=== PATIENT | male | born 1960 | race Caucasian/White ===

== ENCOUNTER 2021-12-26 07:55 | Outpatient (CLI) | payer BC, SELFPAY ==
--- NOTE | ~2021-12-26 | CT_ITS ---
EXAMINATION:CT lung screening DATE: 12/26/2021 08:17 INDICATION: Personal history of nicotine dependence. Current smoker with 40 pack year history. TECHNIQUE: Computed tomography (CT) of the chest was performed without intravenous contrast. Automate d exposure control and iterative reconstruction technique were employed. The dose-length product (DLP ) was 195.62 mGy-cm. COMPARISON: Chest CT 11/01/2019 FINDINGS: The lungs demonstrate mild atelectasis. There is mild scarring in paraspinal right lower lo be. No pleural effusion. The heart size is normal. No pericardial effusion. 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 There is a 6 mm stone in left kidney. There is mild thoracic spondylosis. There is mild chronic anterior wedging of multiple vertebral bodies. IMPRESSION: 1. Lung-RADS category 2: Benign appearance or behavior. Continue annual screening with noncontrast lo w-dose chest CT in 12 months. Reviewed, dictated and finalized at location A. PRESIDENT BUSINESS DEVELOPMENT IMPRESSION: 1. Lung-RADS category 2: Benign appearance or behavior. Continue annual screeni ng with noncontrast low-dose chest CT in 12 months.
== END 2021-12-26 07:56 | disposition home or self-care (01) ==
LOC: CHSIMG 07:59
PROVIDERS: PCP Internal Medicine; Visit Provider Internal Medicine
DX: Z12.2 Encounter for screening for malignant neoplasm of respiratory organs (principal); Z87.891 Personal history of nicotine dependence
CPT/HCPCS: 71271

== ENCOUNTER 2023-06-25 08:24 | Outpatient (CLI) | payer MEDICARE, MEDICAID, SELFPAY ==
--- NOTE | ~2023-06-25 | CT_ITS ---
CT Scan of the Chest without Contrast: Clinical Indication: Lung cancer screening, personal history of nicotine dependence Technique: Contiguous sections were acquired throughout the chest without intravenous contrast. Dose reduction technique was used on this scan by utilizing automated exposure control and iterative recon struction technique. The dose-length product (DLP) was 186.30 mGy-cm. COMPARISON: 12/26/2021 and 11/01/2019 Findings: There is no evidence of any significant mediastinal, hilar or axillary lymphadenopathy. Presumed thym ic hyperplasia in the mediastinum is unchanged. There is no evidence of pleural or pericardial effusion. The lungs are clear. No pulmonary nodules or infiltrates are noted. Images through the upper abdomen reveal nonobstructing left renal stone. Impression: Lung RADS 1: Negative. 12 month follow-up CT advised. Reviewed, dictated and finalized at [facility]. Impression: Lung RADS 1: Negative. 12 month follow-up CT advised.
== END 2023-06-25 08:25 | disposition home or self-care (01) ==
LOC: CHSIMG 08:28
PROVIDERS: PCP Internal Medicine; Visit Provider Internal Medicine
DX: Z12.2 Encounter for screening for malignant neoplasm of respiratory organs (principal); Z87.891 Personal history of nicotine dependence
CPT/HCPCS: 71271

== ENCOUNTER 2024-03-14 10:09 | Outpatient (CLI) | payer MEDICARE, SELFPAY ==
--- NOTE | ~2024-03-14 | XR_ITS ---
AP and lateral views of the left hip Clinical history: Pain Findings: No acute fracture or dislocation is seen. There is mild degenerative change at the superior aspect of the left hip joint. Soft tissues are unremarkable. Impression: Mild left hip joint degenerative change. Reviewed, dictated and finalized at location . Impression: Mild left hip joint degenerative change.
--- NOTE | ~2024-03-14 | XR_ITS ---
XR lumbar spine 2-3V DATE: 03/14/2024 10:45 INDICATION: Horizontal shooting gluteal pain for one month TECHNIQUE: Standing AP, lateral and coned lateral lumbosacral views COMPARISON: None FINDINGS: Approximately 16 degrees dextroscoliosis from T12 to L4. Status post posterior and interbody surgical fusion at L3-4. There is bone fusion at the posterior el ements at L3-L5. Status post lower lumbar laminectomy. There is moderate degenerative disc disease at L1-2, L2-3. There is severe degenerative disc disease at L4-5 and L5-S1. No fracture or bone destruction is evident. The sacroiliac joints are intact. IMPRESSION: Status post lower lumbar laminectomy, posterior and interbody surgical fusion at L3-4, lon ne contusion at the posterior elements at L3-L5. Mild dextroscoliosis Multilevel degenerative disc disease, most severe at L4-5 and L5-S1 Reviewed, dictated and finalized at location B. IMPRESSION: Status post lower lumbar laminectomy, posterior and interbody surgi collin fusion at L3-4, bone contusion at the posterior elements at L3-L5. Mild dextroscoliosis Multilevel degenerative disc disease, most severe at L4-5 and L5-S1
== END 2024-03-14 10:10 | disposition home or self-care (01) ==
LOC: CHSIMG 10:11
PROVIDERS: PCP Internal Medicine; Visit Provider Internal Medicine
DX: M25.552 Pain in left hip (principal); Z98.890 Other specified postprocedural states; M41.86 Other forms of scoliosis, lumbar region; M51.36 Other intervertebral disc degeneration, lumbar region
CPT/HCPCS: 72100; 73502

== ENCOUNTER 2024-04-11 10:18 | Outpatient (CLI) | payer MEDICARE, SELFPAY ==
--- NOTE | ~2024-04-11 | XR_ITS ---
XR cervical spine 4-5V Ordering provider: Denis Fleming MD History: . Cervical spondylosis . Comparison: None. FINDINGS: VERTEBRAL BODIES: Normal height and alignment. No visible fracture or subluxation. The dens is intact . Degenerative changes of the spine with anterior osteophytes. DISK SPACES: Narrowing of the disc C5-C6 and C6-C7. Multilevel uncovertebral joint osteoarthritic elsi nges. Multilevel facet joint disease. Multilevel bilateral narrowing of the foramina. PARASPINOUS SOFT TISSUES: No prevertebral soft tissue swelling. IMPRESSION: No acute osseous abnormality cervical spine. Multilevel degenerative disk disease and facet arthropat hy. Changes of the spine with multilevel degenerative disc disease. Reviewed, dictated and finalized at location A. IMPRESSION: No acute osseous abnormality cervical spine. Multilevel degenerative disk disea se and facet arthropathy. Changes of the spine with multilevel degenerative dis c disease.
== END 2024-04-11 10:19 ==
PROVIDERS: PCP Internal Medicine; Visit Provider Pain Medicine Pain Medicine
DX: M47.812 Spondylosis without myelopathy or radiculopathy, cervical region (principal)
CPT/HCPCS: 72050

== ENCOUNTER 2024-09-14 08:34 | Outpatient (CLI) | payer MEDICARE, SELFPAY ==
--- NOTE | ~2024-09-14 | CT_ITS ---
CT Scan of the Chest without Contrast: Clinical Indication: Lung cancer screening, nicotine dependence Technique: Contiguous sections were acquired throughout the chest without intravenous contrast. Dose reduction technique was used on this scan by utilizing automated exposure control and iterative recon struction technique. The dose-length product (DLP) was 142.83 mGy-cm. COMPARISON: 06/25/2023 Findings: Stable mildly prominent anterior mediastinal lymph nodes and/or residual thymic tissue. There is no evidence of pleural or pericardial effusion. The lungs are clear. No pulmonary nodules or infiltrates are noted. Images through the upper abdomen reveal 3.9 cm exophytic right renal mass, of greater density than si mple cyst. Impression: Lung RADS 1-S: Negative. [address] advised. 3.9 cm suspected exophytic right renal mass. Pre and postcontrast CT or MR recommended, as the lesion appears to be solid, and a renal cell carcinoma suspected until proven otherwise. Case discussed with Dr. Myers at the time of this reading. Reviewed, dictated and finalized at location . ORMANCE IMPROVEMENT COORDINATOR Impression: Lung RADS 1-S: Negative. [address] advised. 3.9 cm suspected exophytic right renal mass. Pre and postcontrast CT or MR javier mmended, as the lesion appears to be solid, and a renal cell carcinoma suspecte d until proven otherwise. Case discussed with Dr. Myers at the time of this reading.
== END 2024-09-14 08:35 | disposition home or self-care (01) ==
LOC: CHSIMG 08:36
PROVIDERS: PCP Internal Medicine; Visit Provider Internal Medicine
DX: Z12.2 Encounter for screening for malignant neoplasm of respiratory organs (principal); Z87.891 Personal history of nicotine dependence; N28.9 Disorder of kidney and ureter, unspecified
CPT/HCPCS: 71271

== ENCOUNTER 2024-10-01 07:23 | Outpatient (CLI) | payer MEDICARE, SELFPAY ==
--- NOTE | ~2024-10-01 | MR_ITS ---
EXAMINATION: MR abdomen wo/w con DATE: 10/01/2024 09:53 INDICATION: Right kidney mass. TECHNIQUE: Magnetic resonance imaging (MRI) of the abdomen was performed without and with 20 mL Multi Sydni intravenous contrast. COMPARISON: Chest CT 09/14/2024 FINDINGS: There is diffuse hepatic steatosis. The gallbladder, spleen, pancreas, and right adrenal gland are no rmal. There is a 14 mm mass in left adrenal gland containing microscopic fat, consistent with an miguel maximiliano. There are cysts in the kidneys measuring up to 15 mm on the left. There is a 4.6 cm enhancing ma ss in right kidney. There are no pathologically enlarged lymph nodes. There is no free intraperitonea l fluid. There are changes of posterior fusion procedure at L3-L4. IMPRESSION: 1. 4.6 cm enhancing mass in right kidney, consistent with renal cell carcinoma. Reviewed, dictated and finalized at location A. NERY OPERATOR G[employer]ANT
== END 2024-10-01 07:24 | disposition home or self-care (01) ==
PROVIDERS: PCP Internal Medicine; Visit Provider Internal Medicine
DX: N28.89 Other specified disorders of kidney and ureter (principal)
CPT/HCPCS: 74183; A9577

== ENCOUNTER 2025-08-21 07:58 | Day surgery (SDC) | payer MEDICARE, SELFPAY ==
[2025-08-04 10:25] VITALS: BMI 27.3
--- OUTSIDE RECORDS SUMMARY | 2025-08-21 08:12 | XMS_ITS | Clinical Summary ---
Author Organization [facility] Address [address] [place] [address] Care Team Providers Care Animal Control Specialist Name Role Phone Benito Myers MD Primary Care Provider Aaron Izaguirre MD Unavailable [phone] Allergies Active Allergy Reactions Criticality Noted Date Comments Cefazolin Flushing (skin) Low 11/11/2024 Stated he felt super hot immediately after receiving Medications metFORMIN (GLUCOPHAGE) 500 mg tablet Take 2 tablets (1,000 mg total) by mouth 2 (two) times a day with meals Active atorvastatin (LIPITOR) 10 mg tablet Take 1 tablet (10 mg total) by mouth nightly Active levothyroxine (SYNTHROID) 25 mcg tablet Take 1 tablet (25 mcg total) by mouth sales representative electric service before breakfast Active cyclobenzaprine (FLEXERIL) 10 mg tablet Take 1 tablet (10 mg total) by mouth as needed for muscle spasms Active HYDROcodone-tae taminophen (NORCO) 5-325 mg per tabletIndicatio ns:Pain Take 1 tablet by mouth every 6 (six) hours as needed for pain 20 tablet 5 Active levoFLOXacin (LEVAQUIN) 500 mg tablet Take 1 tablet (500 mg total) by mouth daily 5 tablet 5 Active Active Problems Problem Noted Date Diagnosed Date Renal mass 11/04/2024 Surgical History Surgery Date Site/Laterality Comments LUMBAR FUSION x 2 (1982, 1992) TONSILLECTOMY LUMBAR DISC SURGERY 10/26/1978 - 10/25/1979 KNEE ARTHROSCOPY Right x 2 Medical History Medical History Date Comments DM2 (diabetes mellitus, type 2) Spinal stenosis HLD (hyperlipidemia) History of vertigo Right renal mass 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 Never 11/11/2024 Q2: How many drinks containi ng alcohol do you have on a typical day when you are drinking? Patient does not drink Q3: How often do you have si x or more drinks on one occasion? Never 11/11/2024 Personal Safety Answer Date Recorded Have you ever been in or are you currently in a harmful physical or emotional relationship or is someone making you feel afraid or unsafe? Denies 11/25/2024 Sex and Gender Information Value Date Recorded Sex Assigned at Not on file Legal Sex Male 8:21 AM CARPENTER HELPER Gender Identity Not on file Sexual Orientation Not on file Obstetrics History Last Filed Vital Signs Vital Sign Reading Time Taken Comments Blood Pressure 126/86 11/27/2024 8:55 AM CARPENTER HELPER Pulse 111 11/27/2024 8:55 AM CARPENTER HELPER Temperature 36.8 C (98.2 F) 11/27/2024 4:08 AM CARPENTER HELPER Respiratory Rate 18 11/27/2024 8:55 AM CARPENTER HELPER Oxygen Saturation 92% 11/27/2024 8:55 AM CARPENTER HELPER Inhaled Oxygen Concentration - - Weight 90.3 kg (199 lb 1.2 oz) 11/25/2024 5:40 A M CARPENTER HELPER Height 177.8 cm (5' 10) 11/25/2024 5:40 AM CARPENTER HELPER Body Mass Index 28.56 11/25/2024 5:40 AM CARPENTER HELPER Plan of Treatment Health Maintenance Due Date Last Done Comments Colon Cancer Screening-Colonoscopy 1961 Depression Screening 1961 Hepatitis C Screening 1961 Prostate Cancer Screening-PSA 1961 Hepatitis B Screening 1979 Regular Well Visit/Exam 18-64 1979 Covid-19 Vaccine (2024-2 6 season) 2025 09/23/2022, 08/16/2021, 02/02/2021 Influenza Vaccine (#1) 2025 DTaP/Tdap/Td Vaccine (2 - Td or Tdap) 06/19/2033 06/19/2023 Zoster Vaccine Completed 09/10/2023, 06/19/2023 Pneumococcal vaccine <65 Aged Out No longer eligible based on patient's age to complete this topic Insurance [facility] MEDICARE ADVANTAGE [facility] Address: [address] [address] Advance Directives For more information, please contact: [phone] * Full Code (Latest Code Status on File) Date Activated Date Inactivated Comments 11/25/2024 2:06 PM 11/27/2024 5:56 PM * Full Code Date Activated Date Inactivated Comments 11/25/2024 1:59 PM 11/25/2024 2:06 PM Care Teams Animal Control Specialist Relationship Specialty Start Date End Date Benito Myers MD [address] [place] [address] PCP - General Internal Medicine 11/11/24 [place] [id number] [place] [id number] Consulting Physician Urology 11/25/24
[2025-08-21 08:30] VITALS: BP 138/92; PULSE 87; RESP 20; TEMP 36.5; O2SAT 96; BMI 26.9
--- NOTE | 2025-08-21 08:54 | PM.IMHP ---
H&P: HPI History of Present Illness Date/Time: 08/21/25 08:54 Chief Complaint: change in bowel habits Narrative: 65 yo man presents for colonoscopy. He has recently had some changes in bowel habits but he thinks it might be due to his taking tylenol with codeine. He had a colonoscopy 11 years ago. Denies hematochezia or melena. No fam hx colon cancer. Review of Systems Review of Systems: All systems reviewed & are unremarkable except as noted in HPI and below Constitutional: Constitutional: Denies chills, Denies fever(s), Denies headache(s) and Denies weight loss Eyes: Eyes: Denies change in vision ENT: Denies dizziness, Denies headache(s), Denies neck mass and Denies throat swelling Cardiovascular: Cardiovascular: Denies chest pain, Denies lightheadedness and Denies dyspnea Respiratory: Respiratory: Denies cough, Denies dyspnea and Denies wheezing Gastrointestinal: Gastrointestinal: Denies abdominal pain, Denies change in bowel habits, Denies nausea and Denies vomiting Genitourinary: Genitourinary: Denies hematuria and Denies dysuria Musculoskeletal: Musculoskeletal: Reports as per HPI Integumentary/Breasts: Skin/Breast: Reports as per HPI Neurologic: Denies dizziness and Denies headache(s) Allergic/Immunologic: Allergic/Immunologic: Denies throat swelling and Denies wheezing PMF Social History Social History Smoking packs per day: 1 Smoking cigarettes per day: 20.0 Years smoked: 40 Smoking pack-years: 40.00 Smoking status: Current every day smoker Tobacco type: cigarettes Substance use type: does not use Living arrangements: alone Spiritual care concerns: No Meds Home Medications and Allergies Home Medications ?Medication ?Instructions ?Recorded ?Confirmed ?Type acetaminophen 300 mg-codeine 30 mg 1 tablet PO BID PRN pain 08/04/25 08/21/25 History tablet atorvastatin 10 mg tablet 10 mg PO DAILY 08/04/25 08/21/25 History levothyroxine 25 mcg tablet 25 mcg PO DAILY 08/04/25 08/21/25 History metformin 500 mg tablet,extended 2,000 mg PO DAILY 08/04/25 08/21/25 History release 24 hr Allergies Allergy/AdvReac Type Severity Reaction Status Date / Time cefazolin Allergy Mild Dizziness Verified 08/21/25 08:17 Vital Signs Vital Signs - 24 hr 08/21/25 08:30 Temperature 97.7 F Pulse Rate 87 Respiratory Rate 20 Blood Pressure 138/92 H Pulse Oximetry 96 Oxygen Delivery Room Air Exam Const: General: no acute distress and alert Orientation/consciousness: patient oriented x3 HENMT: Head: normocephalic and atraumatic Ears: hearing grossly normal bilaterally Face/Nose/Sinus: Normal nares present Mouth: Yes Normal oral and palatal mucosa present Eyes: Periorbital: periorbital findings normal Sclera: sclerae normal EOM: EOMs intact bilaterally Neck: Neck: normal visual inspection, no lymphadenopathy and trachea midline Chest: Chest palpation & inspection: normal inspection of the chest Resp: Effort & Inspection: normal respiratory effort Auscultation: clear to auscultation bilaterally Cardio: Jugular venous distension: no JVD Rate: regular rate Rhythm: regular rhythm Heart sounds: S1 normal heart sound present and S2 normal heart sound present Peripheral pulses: Peripheral pulses 2+ throughout GI: Inspection: normal to inspection GI Palp: Yes Soft to palpation, No Tenderness to palpation present (GI), No Guarding due to palpation present (GI) and No Rebound tenderness present Percussion: Yes normal to percussion Auscultation: normal bowel sounds : General: Yes no CVA tenderness Back/Spine/Pelvis: Back: no CVA tenderness Neuro: General: patient oriented x3, no focal motor deficits and CN's II-XI intact bilaterally Cognition (Neuro): normal cognition Speech: normal speech Motor exam (neuro): 5/5 motor strength present throughout Extrem: General: capillary refill normal and no clubbing, cyanosis or edema Assessment and Plan Assessment and plan (1) Change in bowel habits: Code(s): R19.4 - Change in bowel habit Status: Acute Assessment and Plan: I have recommended colonoscopy. I have discussed the procedure, risks, benefits, and alternatives. Questions were answered. Patient is agreeable to proceed.
--- NOTE | 2025-08-21 08:55 | WPDANESEPPF ---
Anes - Initial Pre Proc Eval Procedure: Operation Date: 08/21/25 09:30 Proposed Procedures p Diagnostic Colonoscopy - Jose Hope DO Date/Time: 08/21/25 08:55 Surgeon: Jose Hope DO Pre Op Diagnosis: Change in Bowel Habits Patient Data Age: 65 Gender: M Height: 1.78 m Weight: 85.1 kg Last Vital Signs Temp 36.5 C 08/21/25 08:30 Pulse 87 08/21/25 08:30 Resp 20 08/21/25 08:30 BP 138/92 H 08/21/25 08:30 Pulse Ox 96 08/21/25 08:30 O2 Del Method Room Air 08/21/25 08:30 Allergies Allergy/AdvReac Type Severity Reaction Status Date / Time cefazolin Allergy Mild Dizziness Verified 08/21/25 08:17 Home Medications ?Medication ?Instructions ?Recorded ?Confirmed ?Type acetaminophen 300 mg-codeine 30 mg 1 tablet PO BID PRN pain 08/04/25 08/21/25 History tablet atorvastatin 10 mg tablet 10 mg PO DAILY 08/04/25 08/21/25 History levothyroxine 25 mcg tablet 25 mcg PO DAILY 08/04/25 08/21/25 History metformin 500 mg tablet,extended 2,000 mg PO DAILY 08/04/25 08/21/25 History release 24 hr Laboratory Tests 08/21/25 08:43 POC Capillary Glucose 113 H mg/dl (65-105) Patient hx anesthesia problems: none Family hx anesthesia problems: none Results Review: All pre-operative results and documents have been reviewed as part of the pre-operative evaluation. PMFSH Social History Social History Smoking packs per day: 1 Smoking cigarettes per day: 20.0 Years smoked: 40 Smoking pack-years: 40.00 Smoking status: Current every day smoker Tobacco type: cigarettes Substance use type: does not use Living arrangements: alone Spiritual care concerns: No Anes - Eval Final PreProcedure Day of Procedure 08/21/25 08:55 Heart: regular rate and rhythm Lungs: clear to auscultation Airway: Mallampati scale Neurological: alert and oriented Last oral intake: >/= 8 hours ASA classification: III Anesthetic plan: proceed Anesthesia type and monitoring: monitored anesthesia care Results Review: All pre-operative results and documents have been reviewed as part of the pre-operative evaluation. Informed Consent: The patient's anesthetic plan and its attendant risks and benefits were discussed with the patient/family/POA. Questions were solicited and answers provided to the satisfaction of the patient/family/POA.
[2025-08-21] MEDS: LACTATED RINGERS 1,000 ML 150 ML IV CONT (09:16)
[2025-08-21 09:18] VITALS: BP 88/69; PULSE 80; RESP 20; O2SAT 95
--- NOTE | 2025-08-21 09:20 | WPDANESPN ---
Anes - Prog Note Post-Op Date/Time: 08/21/25 09:20 Cardiovascular status: normal Respiratory status: normal Airway patency: baseline Mental status: baseline Post-Op hydration status: normal Vital Signs: Last Vital Signs Temp 36.5 C 08/21/25 08:30 Pulse 87 08/21/25 08:30 Resp 20 08/21/25 08:30 BP 138/92 H 08/21/25 08:30 Pulse Ox 96 08/21/25 08:30 O2 Del Method Room Air 08/21/25 08:30 Pain Score (VAS): 0 I/O: Intake & Output 08/20/25 08/21/25 08/21/25 23:59 07:59 15:59 Intake Total 0 Balance 0 08/21/25 08:43 POC Capillary Glucose 113 H Patient Feedback: Patient satisfied with anesthetic care.
[2025-08-21 09:28] VITALS: BP 104/62; PULSE 78; RESP 22; O2SAT 100
[2025-08-21 09:38] VITALS: BP 118/90; PULSE 79; RESP 20; O2SAT 100
== END 2025-08-21 09:59 | disposition home or self-care (01) ==
PROVIDERS: PCP Internal Medicine; Visit Provider Surgery
PROC: 0DJD8ZZ Inspection of Lower Intestinal Tract, Via Natural or Artificial Opening Endoscopic (ICD-10-PCS; CPT 45378; principal; 2025-08-21 09:30)
DX: R19.4 Change in bowel habit (principal); K64.8 Other hemorrhoids
CPT/HCPCS: 45378

== ENCOUNTER 2025-10-06 09:23 | Outpatient (CLI) | payer MEDICARE, SELFPAY ==
--- NOTE | ~2025-10-06 | CT_ITS ---
EXAMINATION:CT lung screening DATE: 10/06/2025 10:42 INDICATION: Screening TECHNIQUE: Computed tomography (CT) of the chest was performed without intravenous contrast. The dose-length product (DLP) was 129.67 mGy-cm. COMPARISON: September 14, 2024 FINDINGS: Tiny reticular nodular changes in the lingular region more pronounced on today's exam. Mild bibasilar fibrotic appearing changes. No new suspicious nodules or masses. No acute intrathoracic process. Heart and great vessels normal in size and stable in appearance. No acute process seen in the visualized portions of the upper abdomen. This is status post surgical changes right kidney. No extra thoracic abnormality identified. IMPRESSION: 1. No suspicious lung nodules or masses. Tiny reticular nodular changes in the lingular region may represent mild focal area of inflammation or previous infection. Lung RADS 2. Recommend correlation with follow-up low-dose lung cancer screening chest CT in 12 months. 2. Other findings as above. Reviewed, dictated and finalized at location A. ENDOCRINOLOGY IMPRESSION: 1. No suspicious lung nodules or masses. Tiny reticular nodular changes in the lingular region may represent mild focal area of inflammation or previous infec tion. Lung RADS 2. Recommend correlation with follow-up low-dose lung cancer sc reening chest CT in 12 months. 2. Other findings as above.
[2025-10-06 09:45] VITALS: BP 127/79; PULSE 76; RESP 14; TEMP 36.4; O2SAT 95; BMI 28.7
[2025-10-06 10:00] LABS: Hematocrit 46.3 % (40.0-54.0); Hemoglobin 15.6 g/dL (14.0-18.0)
[2025-10-06 10:22] LABS: Hematocrit 49.1 % (40.0-54.0); Hemoglobin 16.8 g/dL (14.0-18.0)
[2025-10-06 10:25] VITALS: BP 128/83; PULSE 72; RESP 14; TEMP 36.4; O2SAT 94
--- NOTE | 2025-10-06 10:45 | PC.NURSE ---
1030 Patient tolerated Therapeutic phlebotomy well. SEE Patient care notes.
== END 2025-10-06 09:24 | disposition home or self-care (01) ==
PROVIDERS: PCP Internal Medicine; Visit Provider Internal Medicine
DX: Z12.2 Encounter for screening for malignant neoplasm of respiratory organs (principal); Z87.891 Personal history of nicotine dependence; D75.1 Secondary polycythemia
CPT/HCPCS: 36415; 71271; 85014; 85018; 99195

== ENCOUNTER 2025-10-24 09:44 | Outpatient (CLI) | payer MEDICARE, SELFPAY ==
--- OUTSIDE RECORDS SUMMARY | 2025-10-24 10:06 | XMS_ITS | Clinical Summary ---
Author Organization [facility] Address [address] [place] [address] Care Team Providers Care Pharmaceutical Botanist Name Role Phone Benito Myers MD Primary Care Provider [phone] Aaron Izaguirre MD Unavailable [phone] Allergies Active Allergy Reactions Criticality Noted [...] 1 tablet (25 mcg total) by mouth brick layer before breakfast Active cyclobenzaprine (FLEXERIL) 10 mg [...] on file Legal Sex Male 8:21 AM DRAMATIC CRITIC Gender Identity Not on file Sexual Orientation Not on file Last Filed Vital Signs Vital Sign Reading Time Taken Comments Blood Pressure 126/86 11/27/2024 8:55 AM DRAMATIC CRITIC Pulse 111 11/27/2024 8:55 AM DRAMATIC CRITIC Temperature 36.8 C (98.2 F) 11/27/2024 4:08 AM DRAMATIC CRITIC Respiratory Rate 18 11/27/2024 8:55 AM DRAMATIC CRITIC Oxygen Saturation 92% 11/27/2024 8:55 AM DRAMATIC CRITIC Inhaled Oxygen Concentration - - Weight 90.3 kg (199 lb 1.2 oz) 11/25/2024 5:40 A M DRAMATIC CRITIC Height 177.8 cm (5' 10) 11/25/2024 5:40 AM DRAMATIC CRITIC Body Mass Index 28.56 11/25/2024 5:40 AM DRAMATIC CRITIC Plan of Treatment Health Maintenance Due Date [...] patient's age to complete this topic Insurance [facility] MEDICARE ADVANTAGE Advance Directives For more information, please contact: [phone] * Full Code (Latest Code Status on File) Date Activated Date Inactivated Comments 11/25/2024 2:06 PM 11/27/2024 5:56 PM * Full Code Date Activated Date Inactivated Comments 11/25/2024 1:59 PM 11/25/2024 2:06 PM Care Teams Pharmaceutical Botanist Relationship Specialty Start Date End Date Benito Myers MD [address] [place] [address] PCP - General Internal Medicine 11/11/24 [place] [id number] [place] [id number] Consulting Physician Urology 11/25/24
[2025-10-24 10:26] LABS: Hematocrit 50.4 % (40.0-54.0); Hemoglobin 16.9 g/dL (14.0-18.0); Immature Granulocyte Percent A 0.2 % (0.0-0.0); Lymphocytes Absolute Auto 1.66 K/mm3 (1.10-4.50); Mean Corpuscular HGB Conc 33.5 g/dL (32-36); Mean Corpuscular Hemoglobin 31.5 pg (27.0-31.0); Mean Corpuscular Volume 93.9 fL (78.0-102.0); Nucleated Red Blood Cells Absolute Auto 0.00 K/mm3 (0.00-0.00); Nucleated Red Blood Cells Perc 0.0 % (0-0.0); Platelet Count Result 197 K/mm3 (150-420); Red Blood Count 5.37 M/mm3 (4.70-6.10); White Blood Count 8.4 K/mm3 (4.8-10.8)
== END 2025-10-24 09:45 | disposition home or self-care (01) ==
LOC: CHSLAB 09:47
PROVIDERS: PCP Internal Medicine; Visit Provider Internal Medicine Hematology
DX: D75.1 Secondary polycythemia (principal)
CPT/HCPCS: 36415; 82668; 85025